=== PATIENT | female | born 1980 | race Caucasian/White ===

== ENCOUNTER 2022-03-14 07:24 | Day surgery (SDC) | payer BC ==
[2022-03-11 09:33] VITALS: BMI 27.3
[2022-03-14] MEDS ORDERED: oFLOXacin 0.3% Opth 5 ML BOT ONE (10:55)
[2022-03-14] MEDS ORDERED: EPINEPHrine 1 MG/ML AMP ONE (10:56)
[2022-03-14] MEDS ORDERED: Midazolam HCl 2 mg/2 ml Vial ONE ×2 (10:59→11:03)
[2022-03-14] MEDS ORDERED: Ondansetron PF 4 MG/2 ML Vial ONE (11:03)
[2022-03-14] MEDS ORDERED: PROPOFOL 60 ML ONE (11:03)
[2022-03-14] MEDS ORDERED: Lidocaine 2% PF 5 ML VIAL ONE (11:03)
[2022-03-14] MEDS ORDERED: Dexamethasone 20 MG/5 ML VIAL ONE (11:03)
[2022-03-14] MEDS ORDERED: Fentanyl 100 MCG/2 ML VIAL ONE ×2 (11:03→12:07)
== END 2022-03-14 12:50 | disposition home or self-care (01) ==
LOC: CSHSDC 07:24
PROVIDERS: ATTEND Otolaryngology Plastic Surgery within the Head & Neck
PROC: 099670Z Drainage of Left Middle Ear with Drainage Device, Via Natural or Artificial Opening (ICD-10-PCS; principal; 2022-03-14)
PROC: 0C5T8ZZ Destruction of Right Vocal Cord, Via Natural or Artificial Opening Endoscopic (ICD-10-PCS; principal; 2022-03-14)
DX: J38.1 Polyp of vocal cord and larynx (principal); H65.23 Chronic serous otitis media, bilateral; H69.83 Other specified disorders of Eustachian tube, bilateral; H71.03 Cholesteatoma of attic, bilateral; F17.210 Nicotine dependence, cigarettes, uncomplicated
CPT/HCPCS: 88305; J0171; J1100; J2001; J2250; J2405; J2704; J3010